=== PATIENT | female | born 1945 | race Caucasian/White ===

== ENCOUNTER → 2018-04-27 12:53 | Outpatient (CLI) | payer MEDICARE, SELFPAY | PROVIDERS: Visit Provider Family Medicine | DX: M85.852 Other specified disorders of bone density and structure, left thigh (principal) | CPT/HCPCS: 77080 ==

== ENCOUNTER → 2018-05-05 18:20 | Outpatient (REF) | payer MEDICARE, SELFPAY | LOC: LAB 18:20 | PROVIDERS: Visit Provider Family Medicine | DX: L08.9 Local infection of the skin and subcutaneous tissue, unspecified (principal) | CPT/HCPCS: 87070; 87075; 87205 ==

== ENCOUNTER → 2018-09-22 08:14 | Outpatient (CLI) | payer MEDICARE, SELFPAY ==
--- NOTE | 2018-09-22 09:54 | DI.MG.S_ITS ---
Patient Name: GEOFF FUNG date: 1945 Sex: F Attending Physician: Alejandro Indications: Date: 09/22/2018 08:37 At the request of: TERRIE NUNEZ Procedure: MM screening mammo BI BILATERAL DIGITAL SCREENING MAMMOGRAM 3D/2D WITH CAD: 09/22/2018 CLINICAL: Routine screening. Comparison is made to exams dated: 08/23/2017 mammogram, 09/09/2015 mammogram, and 08/21/2014 mammogram - [facility]. There are scattered fibroglandular elements in both breasts. Current study was also evaluated with a Computer Aided Detection (CAD) system. There are benign calcifications and lymph nodes in both breasts. No significant masses, calcifications, or other findings are seen in either breast. There has been no significant interval change. IMPRESSION: There is no mammographic evidence of malignancy. A 1 year screening mammogram is recommended. This exam was interpreted at Station ID: [id number]. NOTE: For mammograms, a report in lay terms will be sent to the patient. Approximately 15% of breast malignancies will not be visualized mammographically. In the management of a palpable breast mass, a negative mammogram must not discourage biopsy of a clinically suspicious lesion. Electronically Signed By: Alfredo jimneez/ruby:09/22/2018 09:54:04 letter sent: Normal Exam ACR BI-RADS Category 2: Benign Finding(s) 3342F
== END ==
PROVIDERS: PCP Family Medicine; Visit Provider Family Medicine
DX: Z12.31 Encounter for screening mammogram for malignant neoplasm of breast (principal)
CPT/HCPCS: 77063; 77067

== ENCOUNTER → 2019-01-31 07:20 | Outpatient (CLI) | payer MEDICARE, SELFPAY ==
[2019-01-31 09:13] LABS: Alanine Aminotransferase 16 IU/L (9-52); Albumin 4.3 g/dL (3.5-5.0); Albumin Globulin Ratio 1.4 (1.0-2.8); Alkaline Phosphatase 87 U/L (38-126); Aspartate Aminotransferase 25 IU/L (14-36); BUN Creatinine Ratio 22.5 (6-22); Bilirubin Total 0.5 mg/dL (0.2-1.3); Blood Urea Nitrogen 18 mg/dL (7-17); Calcium 9.3 mg/dL (8.4-10.2); Carbon Dioxide 33 mmol/L (22-32); Chloride 99 mmol/L (98-107); Cholesterol 220 mg/dL (140-199); Estimated Glomerular Filt Rate > 60.0 mL/min (>60); Globulin 3.1 g/dL (1.7-4.1); Glucose 109 mg/dL (80-110); HDL Cholesterol 77 mg/dL (40-60); HEMOLYSIS < 15 (0-50); LDL Cholesterol Calculated 119 mg/dL (<100); Potassium 3.9 mmol/L (3.4-5.1); Sodium 139 mmol/L (137-145); Total Protein 7.4 g/dL (6.3-8.2); Triglycerides 122 mg/dL (35-150)
[2019-01-31 09:20] LABS: Vitamin D 25 Hydroxy (D3) 68.9 ng/mL (30.0-100.0)
[2019-01-31 10:54] LABS: Creatinine Urine Random 106.4 mg/dL
[2019-01-31 10:58] LABS: Microalbumi Creatinin Ratio Ur 15.9 ug/mg CR (<30); Microalbumin Urine Random 1.7 mg/dL (0-1.6)
== END ==
PROVIDERS: PCP Family Medicine; Visit Provider Family Medicine
DX: I10 Essential (primary) hypertension (principal); E55.9 Vitamin D deficiency, unspecified
CPT/HCPCS: 36415; 80053; 80061; 82043; 82306; 82570

== ENCOUNTER → 2019-05-03 12:55 | Outpatient (CLI) | payer MEDICARE, SELFPAY ==
[2019-05-03 13:47] LABS: BUN Creatinine Ratio 28.6 (6-22); Blood Urea Nitrogen 20 mg/dL (7-17); Calcium 10.2 mg/dL (8.4-10.2); Carbon Dioxide 31 mmol/L (22-32); Chloride 98 mmol/L (98-107); Estimated Glomerular Filt Rate > 60.0 mL/min (>60); Glucose 95 mg/dL (80-110); HEMOLYSIS < 15 (0-50); Potassium 4.1 mmol/L (3.4-5.1); Sodium 138 mmol/L (137-145)
[2019-05-03 13:49] LABS: Hemoglobin A1C% w Est Avg Glu 5.3 % (4.0-6.0)
== END ==
PROVIDERS: PCP Family Medicine; Visit Provider Family Medicine
DX: I10 Essential (primary) hypertension (principal); Z13.1 Encounter for screening for diabetes mellitus
CPT/HCPCS: 36415; 80048; 83036

== ENCOUNTER → 2019-10-21 12:31 | Outpatient (CLI) | payer MEDICARE, SELFPAY ==
--- NOTE | 2019-10-21 | DI.MG.S_ITS ---
BILATERAL DIGITAL SCREENING MAMMOGRAM 3D/2D WITH CAD: 10/21/2019 CLINICAL: Routine screening. Comparison is made to exams dated: 09/22/2018 mammogram, 08/23/2017 mammogram, and 09/09/2015 mammogram - [facility]. There are scattered fibroglandular elements in both breasts. Current study was also evaluated with a Computer Aided Detection (CAD) system. There are benign lymph nodes in both breasts. There also are benign calcifications in both breasts. No significant masses, calcifications, or other findings are seen in either breast. There has been no significant interval change. IMPRESSION: There is no mammographic evidence of malignancy. A 1 year screening mammogram is recommended. This exam was interpreted at Station ID: [id number]. NOTE: For mammograms, a report in lay terms will be sent to the patient. Approximately 15% of breast malignancies will not be visualized mammographically. In the management of a palpable breast mass, a negative mammogram must not discourage biopsy of a clinically suspicious lesion. Electronically Signed By: Alfredo jimenez/ruby:10/23/2019 08:32:10 letter sent: Normal Exam ACR BI-RADS Category 2: Benign Finding(s) 3342F
== END ==
PROVIDERS: PCP Family Medicine; Referring Provider Family Medicine; Visit Provider Family Medicine
DX: Z12.31 Encounter for screening mammogram for malignant neoplasm of breast (principal)
CPT/HCPCS: 77063; 77067

== ENCOUNTER → 2020-05-03 07:37 | Outpatient (CLI) | payer MEDICARE, SELFPAY ==
[2020-05-03 09:09] LABS: Add Manual Diff / Slide Review NO; Basophils Absolute Auto 100 /uL (0-100); Eosinophils Absolute Auto 300 /uL (0-450); Eosinophils Percent Auto 5.6 % (2-4); Hematocrit 38.2 % (36-46); Hemoglobin 12.7 g/dL (12.0-16.0); Lymphocytes Absolute Auto 1400 /uL (1100-4500); Lymphocytes Percent Auto 21.9 % (25-40); Mean Corpuscular HGB Conc 33.3 % (30-36); Mean Corpuscular Hemoglobin 29.2 PG (26-34); Mean Corpuscular Volume 87.8 fL (80-100); Monocytes Absolute Auto 500 /uL (0-900); Monocytes Percent Auto 7.7 % (3-14); Neutrophils Absolute Auto 3900 /uL (1500-7000); Neutrophils Percent Auto 63.8 % (50-75); Platelet Count 251 X10^3/uL (150-400); Red Blood Cell Count 4.35 X10^6/uL (4.0-5.2); Red Cell Distribution Width 13.1 % (11.6-14.8); White Blood Cell Count 6.2 X10^3/uL (4.5-11.0)
[2020-05-03 09:12] LABS: Alanine Aminotransferase 15 IU/L (<35); Albumin 3.9 g/dL (3.5-5.0); Albumin Globulin Ratio 1.4 (1.0-2.8); Alkaline Phosphatase 65 U/L (38-126); Aspartate Aminotransferase 24 IU/L (14-36); BUN Creatinine Ratio 23.6 (6-22); Bilirubin Total 0.5 mg/dL (0.2-1.3); Blood Urea Nitrogen 21 mg/dL (7-17); Calcium 9.4 mg/dL (8.4-10.2); Carbon Dioxide 29 mmol/L (22-32); Chloride 103 mmol/L (98-107); Cholesterol 210 mg/dL (140-199); Estimated Glomerular Filt Rate > 60.0 mL/min (>60); Globulin 2.8 g/dL (1.7-4.1); Glucose 107 mg/dL (80-110); HDL Cholesterol 83 mg/dL (40-60); HEMOLYSIS < 15 (0-50); LDL Cholesterol Calculated 114 mg/dL (<100); Potassium 4.4 mmol/L (3.4-5.1); Sodium 138 mmol/L (137-145); Total Protein 6.7 g/dL (6.3-8.2); Triglycerides 66 mg/dL (35-150)
[2020-05-07 12:36] LABS: Vitamin D 25 Hydroxy (D3) 61.4 ng/mL (30.0-100.0)
== END ==
PROVIDERS: PCP Family Medicine; Referring Provider Family Medicine; Visit Provider Family Medicine
DX: E78.5 Hyperlipidemia, unspecified (principal); I10 Essential (primary) hypertension; Z79.899 Other long term (current) drug therapy; E55.9 Vitamin D deficiency, unspecified
CPT/HCPCS: 36415; 80053; 80061; 82306; 85025

== ENCOUNTER → 2020-06-23 08:19 | Outpatient (CLI) | payer MEDICARE, SELFPAY ==
[2020-06-24 16:59] LABS: COVID19 Sendout Not Detected (Not Detect)
== END ==
PROVIDERS: PCP Family Medicine; Visit Provider Physician Assistant
DX: Z11.59 Encounter for screening for other viral diseases (principal)
CPT/HCPCS: 87635

== ENCOUNTER → 2020-07-10 10:42 | Outpatient (CLI) | payer MEDICARE, SELFPAY ==
[2020-07-10 12:38] LABS: COVID19 -Nasal RAPID Negative (Negative)
== END ==
PROVIDERS: PCP Family Medicine; Visit Provider Nurse Practitioner Family
DX: G47.33 Obstructive sleep apnea (adult) (pediatric) (principal)
CPT/HCPCS: 87635

== ENCOUNTER → 2020-07-29 09:25 | Outpatient (CLI) | payer MEDICARE, SELFPAY ==
[2020-07-29 11:42] LABS: COVID19 -Nasal RAPID Negative (Negative)
== END ==
PROVIDERS: PCP Family Medicine; Visit Provider Physician Assistant
DX: Z11.59 Encounter for screening for other viral diseases (principal)
CPT/HCPCS: 87635

== ENCOUNTER 2020-07-31 07:27 | Day surgery (SDC) | payer MEDICARE, SELFPAY ==
[2020-07-31 08:01] VITALS: BP 125/79; PULSE 96; RESP 16; TEMP 36.9; O2SAT 98; BMI 28.3
[2020-07-31] MEDS: SODIUM CHLORIDE 0.9% 1,000 ML 21 ML IV (08:11)
--- NOTE | 2020-07-31 08:26 | PM.HP.1 ---
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 Grandfather No problems noted. Grandmother No problems noted. Social History: household members spouse lives independently Yes caregiver/support person No Tobacco & Substance use: Smoking Status Never smoker alcohol intake current alcohol intake frequency a few times a week Substance Use Type does not use Meds Home Medications and Allergies Home Medications Medication Instructions Recorded Confirmed Type FEXOFENADINE HCL/PSE HCL 1 tab PO PRN PRN #0 07/10/11 07/31/20 History (ALAN-D) cyanocobalamin (vitamin B-12) 1,000 mcg PO DAILY #0 12/08/17 07/31/20 History cholecalciferol (vitamin D3) 1,250 50,000 unit PO .COMPLEX 03/22/18 07/31/20 History mcg (50,000 unit) capsule hydrochlorothiazide 25 mg tablet See Rx Instructions .ROUTE 05/13/20 07/31/20 Rx .COMPLEX #90 tab paroxetine HCl 20 mg tablet 20 mg PO QDAY #90 tab 05/13/20 07/31/20 Rx pravastatin 20 mg tablet See Rx Instructions .ROUTE 05/13/20 07/31/20 Rx .COMPLEX #90 tablet Allergies Allergy/AdvReac Type Severity Reaction Status Date / Time No Known Drug Allergies Allergy Verified 07/31/20 07:55 Exam Vital Signs (past 8 hours): - 07/31/20 08:01 Temperature 98.4 F Pulse Rate 96 H Respiratory Rate 16 Blood Pressure 125/79 Pulse Oximetry 98 Oxygen Delivery Method Room Air Narrative Exam Narrative: Oropharynx free of lesions Chest clear to auscultation percussion Cardiac exam reveals no S3 or murmur Assessment & Plan Assessment & Plan narrative: History of large flat polyp in the right colon that could not be removed endoscopically status post right hemicolectomy and a brother of colon cancer at age 57. Need for follow-up colonoscopy. Risks, benefits, alternatives have been explained.
--- NOTE | 2020-07-31 08:27 | PM.OP.ENDO ---
Operative Date/Time/Diagnoses Date of procedure: 07/31/20 Pre-op diagnosis: See indication and findings Procedure & Clinicians Study performed: Colonoscopy Indications: Family history of colon cancer in a brother at age 57 and status post right hemicolectomy for large flat polyp. Need for follow-up colonoscopy. Surgeon: Sara Boyce Procedure Notes Procedure in detail: After informed consent was obtained the patient was placed in left lateral decubitus position. The video colonoscope was introduced the rectum slowly advanced anastomosis. Preparation was good. On slow withdrawal mucosa was carefully examined. The scope was removed. The patient tolerated procedure well. Blood loss none Complications none Sedation Total sedation time 15 minutes Versed 6 mg fentanyl 150 mg IV titration Findings 1. Normal anastomosis near the hepatic flexure 2. Extensive sigmoid diverticulosis 3. Otherwise negative colonoscopy to cecum with no polyps seen. Due to her family history of colon cancer she should have follow-up colonoscopy again in 5 years.
[2020-07-31] MEDS: MIDAZOLAM 5 MG/5 ML VIAL IV (08:45)
[2020-07-31] MEDS: fentaNYL 250 MCG/5 ML INJ IV (08:45)
[2020-07-31 08:58] VITALS: BP 97/64; PULSE 89; RESP 8; TEMP 37.6; O2SAT 90
--- NOTE | 2020-07-31 09:00 | SUR.PHASEI ---
report rcvd from YULIANA Damon after pt in pacu for couple minutes. Report now given to Yuliana Oleary
[2020-07-31 09:02] VITALS: BP 105/60; PULSE 87; RESP 11; O2SAT 99
[2020-07-31 09:07] VITALS: BP 128/68; PULSE 87; RESP 12; O2SAT 100
[2020-07-31 09:12] VITALS: BP 132/64; PULSE 87; RESP 12; TEMP 36.9; O2SAT 99
[2020-07-31 09:18] VITALS: BP 126/72; PULSE 86; RESP 14; O2SAT 94
== END 2020-07-31 09:36 | disposition home or self-care (01) ==
PROVIDERS: PCP Family Medicine; Referring Provider Family Medicine; Visit Provider Internal Medicine Gastroenterology
PROC: 0DJD8ZZ Inspection of Lower Intestinal Tract, Via Natural or Artificial Opening Endoscopic (ICD-10-PCS; CPT 45378; principal; 2020-07-31 08:30)
DX: Z12.11 Encounter for screening for malignant neoplasm of colon (principal); Z80.0 Family history of malignant neoplasm of digestive organs; Z86.010 Personal history of colon polyps; K57.30 Diverticulosis of large intestine without perforation or abscess without bleeding; Z90.49 Acquired absence of other specified parts of digestive tract
CPT/HCPCS: G0105; J2250; J3010

== ENCOUNTER → 2021-03-12 11:03 | Outpatient (CLI) | payer MEDICARE, SELFPAY ==
--- NOTE | 2021-03-12 11:05 | DI.MG.S_ITS ---
BILATERAL DIGITAL SCREENING MAMMOGRAM 3D/2D WITH CAD: 03/12/2021 Comparison is made to exams dated: 10/21/2019 mammogram, 09/22/2018 mammogram, 08/23/2017 mammogram, and 09/09/2015 mammogram - [facility]. There are scattered fibroglandular elements in both breasts. Current study was also evaluated with a Computer Aided Detection (CAD) system. There are benign lymph nodes in both breasts. There also are benign calcifications in both breasts. No significant masses, calcifications, or other findings are seen in either breast. There has been no significant interval change. IMPRESSION: BENIGN There is no mammographic evidence of malignancy. A 1 year screening mammogram is recommended. This exam was interpreted at Station ID: [id number]. NOTE: For mammograms, a report in lay terms will be sent to the patient. Approximately 15% of breast malignancies will not be visualized mammographically. In the management of a palpable breast mass, a negative mammogram must not discourage biopsy of a clinically suspicious lesion. Electronically Signed By: Moncho parra/ruby:03/12/2021 11:46:31 letter sent: Normal Exam ACR BI-RADS Category 2: Benign Finding(s) 3342F
== END ==
PROVIDERS: PCP Family Medicine; Referring Provider Family Medicine; Visit Provider Family Medicine
DX: Z12.31 Encounter for screening mammogram for malignant neoplasm of breast (principal)
CPT/HCPCS: 77063; 77067

== ENCOUNTER → 2021-05-29 07:44 | Outpatient (CLI) | payer MEDICARE, SELFPAY ==
[2021-05-29 08:10] LABS: Add Manual Diff / Slide Review NO; Basophils Absolute Auto 100 /uL (0-100); Basophils Percent Auto 1.2 % (0-2); Eosinophils Absolute Auto 300 /uL (0-450); Hematocrit 39.8 % (36-46); Hemoglobin 13.1 g/dL (12.0-16.0); Lymphocytes Absolute Auto 1600 /uL (1100-4500); Lymphocytes Percent Auto 22.2 % (25-40); Mean Corpuscular HGB Conc 32.9 % (30-36); Mean Corpuscular Hemoglobin 29.2 PG (26-34); Mean Corpuscular Volume 88.7 fL (80-100); Monocytes Absolute Auto 500 /uL (0-900); Monocytes Percent Auto 7.7 % (3-14); Neutrophils Absolute Auto 4600 /uL (1500-7000); Neutrophils Percent Auto 64.9 % (50-75); Platelet Count 269 X10^3/uL (150-400); Red Blood Cell Count 4.49 X10^6/uL (4.0-5.2); Red Cell Distribution Width 13.4 % (11.6-14.8); White Blood Cell Count 7.1 X10^3/uL (4.5-11.0)
[2021-05-29 09:26] LABS: Alanine Aminotransferase 20 IU/L (<35); Albumin 4.2 g/dL (3.5-5.0); Albumin Globulin Ratio 1.4 (1.0-2.8); Alkaline Phosphatase 68 U/L (38-126); Aspartate Aminotransferase 30 IU/L (14-36); BUN Creatinine Ratio 24.3 (6-22); Bilirubin Total 0.4 mg/dL (0.2-1.3); Blood Urea Nitrogen 18 mg/dL (7-17); Calcium 9.7 mg/dL (8.4-10.2); Carbon Dioxide 33 mmol/L (22-32); Chloride 102 mmol/L (98-107); Cholesterol 235 mg/dL (140-199); Estimated Glomerular Filt Rate > 60.0 mL/min (>60); Globulin 2.9 g/dL (1.7-4.1); Glucose 101 mg/dL (80-110); HDL Cholesterol 92 mg/dL (40-60); HEMOLYSIS < 15 (0-50); LDL Cholesterol Calculated 126 mg/dL (<100); Potassium 4.3 mmol/L (3.4-5.1); Sodium 140 mmol/L (137-145); Total Protein 7.1 g/dL (6.3-8.2); Triglycerides 87 mg/dL (35-150)
[2021-05-29 10:13] LABS: Vitamin B12 > 1000 pg/mL (239-931)
[2021-05-29 10:19] LABS: Creatinine Urine Random 99.3 mg/dL
[2021-05-29 10:25] LABS: Microalbumin Urine Random < 0.6 mg/dL (0-1.6)
== END ==
PROVIDERS: PCP Family Medicine; Referring Provider Family Medicine; Visit Provider Family Medicine
DX: E53.8 Deficiency of other specified B group vitamins (principal); E78.5 Hyperlipidemia, unspecified; I10 Essential (primary) hypertension
CPT/HCPCS: 36415; 80053; 80061; 82043; 82570; 82607; 85025

== ENCOUNTER → 2021-06-13 10:33 | Outpatient (CLI) | payer MEDICARE, SELFPAY ==
--- NOTE | 2021-06-13 10:35 | DI.RAD.S_ITS ---
PROCEDURE: XR FINGER LT MIN 2V INDICATIONS: left 3rd finger pain TECHNIQUE: AP hand, 2 views of the left 3rd finger(s) acquired. COMPARISON: None. FINDINGS: Bones: No fractures or dislocations. No suspicious bony lesions. Moderate 3rd DIP joint osteoarthritis. Soft tissues: No suspicious soft tissue calcifications. IMPRESSION: 1. No fracture. No acute osseous lesion. If symptoms and/or clinical suspicion for pathology persists, further assessment with repeat radiographs (7-10 days) or advanced imaging (e.g. CT, MRI or bone scan) should be considered. 2. Third DIP joint osteoarthritis. Dictated by: Lizbet Peña MD, PhD on 06/13/2021 at 11:55 Approved by: Lizbet Peña MD, PhD on 06/13/2021 at 12:06
== END ==
PROVIDERS: PCP Family Medicine; Referring Provider Family Medicine; Visit Provider Family Medicine
DX: M79.646 Pain in unspecified finger(s) (principal); M19.042 Primary osteoarthritis, left hand
CPT/HCPCS: 73140

== ENCOUNTER → 2022-03-25 09:09 | Outpatient (CLI) | payer MEDICARE, SELFPAY ==
--- NOTE | 2022-03-25 | DI.MG.S_ITS ---
BILATERAL DIGITAL SCREENING MAMMOGRAM 3D/2D WITH CAD: 03/25/2022 CLINICAL: Routine screening. Comparison is made to exams dated: 03/12/2021 mammogram, 10/21/2019 mammogram, and 09/22/2018 mammogram - [facility]. There are scattered fibroglandular elements in both breasts. Current study was also evaluated with a Computer Aided Detection (CAD) system. There is a benign focal asymmetry in both breasts. There also are benign lymph nodes in both breasts. Additionally, there are benign calcifications in both breasts. No significant masses, calcifications, or other findings are seen in either breast. There has been no significant interval change. IMPRESSION: BENIGN There is no mammographic evidence of malignancy. A 1 year screening mammogram is recommended. Based on the Tyrer Cuzick model (a risk assessment model) the patient's lifetime risk is 2.8% and her 10 year risk is 0.0%. According to the ACR, ACS, and NCCN guidelines, an annual breast MRI exam along with mammogram is recommended if the patient's lifetime risk is 20% or greater. This exam was interpreted at Station ID: [id number]. NOTE: For mammograms, a report in lay terms will be sent to the patient. Approximately 15% of breast malignancies will not be visualized mammographically. In the management of a palpable breast mass, a negative mammogram must not discourage biopsy of a clinically suspicious lesion. Electronically Signed By: Antonio Reed acr/ruby:03/25/2022 09:46:32 letter sent: Normal Exam ACR BI-RADS Category 2: Benign Finding(s) 3342F
== END ==
PROVIDERS: PCP Family Medicine; Referring Provider Family Medicine; Visit Provider Family Medicine
DX: Z12.31 Encounter for screening mammogram for malignant neoplasm of breast (principal)
CPT/HCPCS: 77063; 77067

== ENCOUNTER → 2022-03-26 07:00 | Outpatient (CLI) | payer MEDICARE, SELFPAY ==
[2022-03-26 09:31] LABS: Alanine Aminotransferase 20 IU/L (<35); Albumin 4.1 g/dL (3.5-5.0); Albumin Globulin Ratio 1.5 (1.0-2.8); Alkaline Phosphatase 62 U/L (38-126); Aspartate Aminotransferase 31 IU/L (14-36); BUN Creatinine Ratio 22.4 (6-22); Bilirubin Total 0.5 mg/dL (0.2-1.3); Blood Urea Nitrogen 19 mg/dL (7-17); Calcium 9.3 mg/dL (8.4-10.2); Carbon Dioxide 30 mmol/L (22-32); Chloride 102 mmol/L (98-107); Cholesterol 265 mg/dL (140-199); Estimated Glomerular Filt Rate > 60 mL/min (>60); Globulin 2.7 g/dL (1.7-4.1); Glucose 106 mg/dL (80-110); HDL Cholesterol 89 mg/dL (40-60); HEMOLYSIS < 15 (0-50); LDL Cholesterol Calculated 158 mg/dL (<100); Potassium 4.2 mmol/L (3.4-5.1); Sodium 139 mmol/L (137-145); Total Protein 6.8 g/dL (6.3-8.2); Triglycerides 90 mg/dL (35-150)
[2022-03-26 09:46] LABS: Vitamin D 25 Hydroxy (D3) 68.3 ng/mL (30.0-100.0)
[2022-03-26 10:15] LABS: Creatinine Urine Random 120.6 mg/dL
[2022-03-26 10:18] LABS: Microalbumi Creatinin Ratio Ur 4.9 ug/mg CR (<30); Microalbumin Urine Random 0.6 mg/dL (0-1.6)
[2022-03-26 10:19] LABS: Vitamin B12 505 pg/mL (239-931)
== END ==
PROVIDERS: PCP Family Medicine; Referring Provider Family Medicine; Visit Provider Family Medicine
DX: E78.5 Hyperlipidemia, unspecified (principal); K21.9 Gastro-esophageal reflux disease without esophagitis; E53.8 Deficiency of other specified B group vitamins; I10 Essential (primary) hypertension
CPT/HCPCS: 36415; 80053; 80061; 82043; 82306; 82570; 82607

== ENCOUNTER → 2022-06-05 07:47 | Outpatient (CLI) | payer MEDICARE, SELFPAY ==
[2022-06-05 09:08] LABS: Cholesterol 228 mg/dL (140-199); HDL Cholesterol 87 mg/dL (40-60); LDL Cholesterol Calculated 126 mg/dL (<100); Triglycerides 74 mg/dL (35-150)
== END ==
PROVIDERS: PCP Family Medicine; Referring Provider Family Medicine; Visit Provider Family Medicine
DX: E78.5 Hyperlipidemia, unspecified (principal)
CPT/HCPCS: 36415; 80061

== ENCOUNTER → 2023-01-07 07:26 | Outpatient (CLI) | payer MEDICARE, SELFPAY ==
[2023-01-07 09:09] LABS: Cholesterol 234 mg/dL (140-199); HDL Cholesterol 90 mg/dL (40-60); LDL Cholesterol Calculated 126 mg/dL (<100); Triglycerides 91 mg/dL (35-150)
== END ==
PROVIDERS: PCP Family Medicine; Referring Provider Physician Assistant; Visit Provider Physician Assistant
DX: E78.5 Hyperlipidemia, unspecified (principal)
CPT/HCPCS: 36415; 80061

== ENCOUNTER → 2023-06-14 12:34 | Outpatient (CLI) | payer MEDICARE, SELFPAY ==
--- NOTE | 2023-06-14 | DI.MG.S_ITS ---
BILATERAL DIGITAL SCREENING MAMMOGRAM 3D/2D WITH CAD: 06/14/2023 CLINICAL: Routine screening. Comparison is made to exams dated: 03/25/2022 mammogram, 03/12/2021 mammogram, and 10/21/2019 mammogram - [facility]. There are scattered areas of fibroglandular density in both breasts (category b / 25%-50% glandular tissue). Current study was also evaluated with a Computer Aided Detection (CAD) system. No significant masses, calcifications, or other findings are seen in either breast. IMPRESSION: NEGATIVE There is no mammographic evidence of malignancy. A 1 year screening mammogram is recommended. Based on the Tyrer Cuzick model (a risk assessment model) the patient's lifetime risk is 2.2% and her 10 year risk is 0.0%. According to the ACR, ACS, and NCCN guidelines, an annual breast MRI exam along with mammogram is recommended if the patient's lifetime risk is 20% or greater. This exam was interpreted at Station ID: [id number]. NOTE: For mammograms, a report in lay terms will be sent to the patient. Approximately 15% of breast malignancies will not be visualized mammographically. In the management of a palpable breast mass, a negative mammogram must not discourage biopsy of a clinically suspicious lesion. Electronically Signed By: Kelle blackburn/ruby:06/15/2023 08:24:43 letter sent: Normal Exam ACR BI-RADS Category 1: Negative 3341F
== END ==
PROVIDERS: PCP Family Medicine; Referring Provider Family Medicine; Visit Provider Family Medicine
DX: Z12.31 Encounter for screening mammogram for malignant neoplasm of breast (principal)
CPT/HCPCS: 77063; 77067

== ENCOUNTER → 2023-06-28 12:43 | Outpatient (CLI) | payer MEDICARE, SELFPAY ==
--- NOTE | 2023-06-28 12:44 | DI.RAD.S_ITS ---
PROCEDURE: XR HIP W PEL IF DONE LT 2V INDICATIONS: Pain TECHNIQUE: AP pelvis with lateral view(s) of the left hip(s). COMPARISON: None. FINDINGS: Bones: No fractures or dislocations. Pelvic ring appears intact. No suspicious bony lesions. Mild symmetric axial hip joint space narrowing with minimal periarticular osteophyte formation. Degenerative disc and facet disease involves the inferior lumbar spine. Soft tissues: The visualized bowel gas pattern is normal. No suspicious soft tissue calcifications. IMPRESSION: Mild symmetric hip joint degeneration. If pain persist with conservative management, consider cross-sectional imaging such as CT or MRI. Dictated by: Brayan WATTS Interpreted: Moncho Hess MD on 06/28/2023 at 13:34 Transcribed by: PRADIP on 06/28/2023 at 13:34 Approved by: Moncho Hess M.D. on 06/28/2023 at 21:09
--- NOTE | 2023-06-28 12:44 | DI.RAD.S_ITS ---
PROCEDURE: XR LUMBAR SPINE 2-3V INDICATIONS: Pain TECHNIQUE: 3 views of the lumbar spine were acquired. COMPARISON: None. FINDINGS: Bones: 5 baf-vsg-mizcgus vertebrae are present. Minimal levocurvature of the lumbar spine. There is multilevel facet arthropathy, worse at L4-5 and L5-S1. Mild multilevel disc height loss with degenerative endplate changes and spurring is present. No vertebral body compression fractures. No suspicious bony lesions. Decreased osseous mineralization. Soft tissues: Overlying bowel gas pattern is normal. No suspicious soft tissue calcifications. Atherosclerotic vascular calcifications. IMPRESSION: Mild degenerative changes of the lumbar spine. Dictated by: Javed De La Paz M.D. on 06/28/2023 at 14:15 Approved by: Javed De La Paz M.D. on 06/28/2023 at 14:16
== END ==
PROVIDERS: PCP Family Medicine; Referring Provider Family Medicine; Visit Provider Family Medicine
DX: R52 Pain, unspecified (principal); M16.0 Bilateral primary osteoarthritis of hip
CPT/HCPCS: 72100; 73502

== ENCOUNTER → 2023-08-18 06:54 | Outpatient (CLI) | payer MEDICARE, SELFPAY ==
[2023-08-18 08:08] LABS: Alanine Aminotransferase 20 IU/L (<35); Albumin 3.9 g/dL (3.5-5.0); Albumin Globulin Ratio 1.3 (1.0-2.8); Alkaline Phosphatase 69 U/L (38-126); Aspartate Aminotransferase 27 IU/L (14-36); BUN Creatinine Ratio 19.5 (6-22); Bilirubin Total 0.7 mg/dL (0.2-1.3); Blood Urea Nitrogen 16 mg/dL (7-17); Calcium 9.6 mg/dL (8.4-10.2); Carbon Dioxide 32 mmol/L (22-32); Chloride 102 mmol/L (98-107); Cholesterol 227 mg/dL (140-199); Estimated Glomerular Filt Rate > 60 mL/min (>60); Globulin 2.9 g/dL (1.7-4.1); Glucose 104 mg/dL (80-110); HDL Cholesterol 91 mg/dL (40-60); HEMOLYSIS < 15 (0-50); LDL Cholesterol Calculated 117 mg/dL (<100); Potassium 4.4 mmol/L (3.4-5.1); Sodium 139 mmol/L (137-145); Total Protein 6.8 g/dL (6.3-8.2); Triglycerides 95 mg/dL (35-150)
== END ==
PROVIDERS: PCP Family Medicine; Referring Provider Family Medicine; Visit Provider Family Medicine
DX: I10 Essential (primary) hypertension (principal)
CPT/HCPCS: 36415; 80053; 80061

== ENCOUNTER 2023-09-15 13:58 | Outpatient (CLI) | payer MEDICARE, SELFPAY ==
[2023-09-15 14:05] VITALS: BP 145/65; PULSE 78; RESP 20; TEMP 36.4; O2SAT 99
[2023-09-15 14:23] VITALS: BP 162/77; PULSE 74; RESP 16; O2SAT 97
[2023-09-15] MEDS: DEXAMETHASONE 10 MG/ML VIAL INJ (14:27)
[2023-09-15] MEDS: iopamidoL 15 ML VIAL 3 ML INJ (14:27)
[2023-09-15] MEDS: BUPIVACAINE 0.5% (PF) 10 ML VIAL 2 ML INJ (14:27)
[2023-09-15 14:28] VITALS: BP 144/77; PULSE 73; RESP 19; O2SAT 97
--- NOTE | 2023-09-15 14:30 | DI.RAD.S_ITS ---
PROCEDURE: PAIN BURSA/JOINT INJECT WO US INDICATIONS: ISCHIAL BURSITIS COMPARISON: None. FINDINGS: Fluoroscopic spot filming was performed to verify placement of spinal needles at the ischial bursa, as labeled on the films. Appropriate location(s) of the needle tip(s) was confirmed by injection of iodinated contrast. IMPRESSION: Intraoperative images, please see operative note for full details. Dictated by: Ayaan Kelly M.D. on 09/15/2023 at 17:31 Approved by: Ayaan Kelly M.D. on 09/15/2023 at 17:31
[2023-09-15 14:31] VITALS: BP 168/87; PULSE 71; RESP 18; O2SAT 99
[2023-09-15 14:35] VITALS: BP 156/69; PULSE 75; RESP 18; O2SAT 99
--- NOTE | 2023-09-15 15:15 | P.PCN_ITS ---
Date/Time/Diagnoses Date of procedure: 09/15/23 Time of procedure: 14:30 Procedure Notes Physician: Andrew Lees Total Fluoroscopy time (seconds): 9 Total sedation minutes: 0 Procedure in detail & Post-procedure care: Left Ischial Bursa Injection Indications: Susanna is presenting for treatment of ischial bursitis with buttock pain. Preoperative diagnosis: Left ischial bursitis Postoperative diagnosis: Same Focused Examination: Ax3 Mood and affect are normal Vital Signs: VSS Consent: Following review of allergies and potential side effects/complications, including, but not necessarily limited to, infection, allergic reaction, local tissue breakdown, stroke, temporary or permanent nerve injury, paralysis, and possible , the patient indicated that they understood and agreed to proceed.? An informed consent document was signed by the patient, witnessed by a nurse and placed in the patient's chart.? Additionally, other treatment options including medications and physical therapy were reviewed with the patient. All questions were answered. Site was then marked. Anesthesia: Local Position: Prone Monitoring: NIBP, Pulse oximetry, 3 lead EKG Needle used: 22 gauge, 5 inch spinal needle Contrast: Isovue 300-M 3mL Injectate: Dexamethasone 7.5 mg with 1% lidocaine 2 mL Technique: The skin was prepped with chloraprep and then draped in a sterile fashion. Time out was performed as per protocol. Oxygen applied via NC. The expected location of the left ischial bursa was identified at the inferior aspect of the ischium using fluoroscopy. Skin and subcutaneous structures of the needle entry sites were then infiltrated with 5 mL of lidocaine 1% using a 25 gauge, 1.5 in needle. Under AP and lateral control, the needle was guided to the inferolateral aspect of the ischium. Contrast was injected and the spread was consistent with appropriate needle location. There was no evidence for intravascular uptake. After negative aspiration, the above-mentioned injectate was slowly administered and the needle withdrawn. The patient expressed no unu sual discomfort or paresthesias during needle positioning or injection. Band- Aids applied to injection sites. EBL: less than 1 ml Complications: None Post Procedure: Patient was taken to the recovery and monitored. The patient was provided a Pain Log to continue to record the patient's response to the target- specific procedure prior to the patient's follow-up visit with the referring physician. Patient was stable upon discharge. Detailed post procedure instructions were provided. Patient was asked to call in the event of worsening pain, fever, weakness, numbness or bladder/bowel incontinence.
--- NOTE | 2023-09-16 13:29 | PC.NURSE ---
post injection call- reports that her hip is tender at times but rates it 1-10/23. Has no questions or concerns at this time and has f/u apt on 10/12/23.
== END 2023-09-15 14:49 | disposition home or self-care (01) ==
PROVIDERS: PCP Family Medicine; Referring Provider Anesthesiology; Visit Provider Anesthesiology
DX: M70.72 Other bursitis of hip, left hip (principal)
CPT/HCPCS: 20610; 77002; J1100

== ENCOUNTER 2023-10-20 07:39 | Outpatient (CLI) | payer MEDICARE, SELFPAY ==
--- NOTE | 2023-10-20 08:00 | DI.RAD.S_ITS ---
PROCEDURE: PAIN BURSA/JOINT INJECT WO US INDICATIONS: Lt Ischial Bursitis COMPARISON: [facility], XA, PAIN BURSA/JOINT INJECT WO US, 09/15/2023, 15:22. FINDINGS: Fluoroscopic spot filming was performed to verify placement of spinal needles at the the left ischial level(s), as labeled on the films. Appropriate location(s) of the needle tip(s) was confirmed by injection of iodinated contrast. IMPRESSION: Fluoroscopic guidance utilized for left ischial injection. Dictated by: Harley Dey M.D. on 10/20/2023 at 14:27 Approved by: Harley Dey M.D. on 10/20/2023 at 14:37
[2023-10-20 08:10] VITALS: BP 128/74; PULSE 76; RESP 13; O2SAT 97
[2023-10-20] MEDS: BUPIVACAINE 0.5% (PF) 10 ML VIAL 2 ML INJ (08:11)
[2023-10-20] MEDS: iopamidoL 15 ML VIAL 3 ML INJ (08:12)
[2023-10-20 08:15] VITALS: BP 140/75; PULSE 75; RESP 17; O2SAT 96
[2023-10-20 08:20] VITALS: BP 149/66; PULSE 75; RESP 18; O2SAT 97
--- NOTE | 2023-10-20 12:19 | P.PCN_ITS ---
Date/Time/Diagnoses Date of procedure: 10/20/23 Time of procedure: 08:00 Procedure Notes Physician: Andrew Lees Total Fluoroscopy time (seconds): 9 Total sedation minutes: 0 Procedure in detail & Post-procedure care: Left Ischial Bursa Injection Indications: Susanna is presenting for treatment of ischial bursitis with buttock pain. Preoperative diagnosis: Left ischial bursitis Postoperative diagnosis: Same Focused Examination: Ax3 Mood and affect are normal Vital Signs: VSS Consent: Following review of allergies and potential side effects/complications, including, but not necessarily limited to, infection, allergic reaction, local tissue breakdown, stroke, temporary or permanent nerve injury, paralysis, and possible , the patient indicated that they understood and agreed to proceed.? An informed consent document was signed by the patient, witnessed by a nurse and placed in the patient's chart.? Additionally, other treatment options including medications and physical therapy were reviewed with the patient. All questions were answered. Site was then marked. Anesthesia: Local Position: Prone Monitoring: NIBP, Pulse oximetry, 3 lead EKG Needle used: 22 gauge, 5 inch spinal needle Contrast: Isovue 300-M 3mL Injectate: Depo-Medrol 40 mg with 0.5% bupivacaine 2 mL Technique: The skin was prepped with chloraprep and then draped in a sterile fashion. Time out was performed as per protocol. Oxygen applied via NC. The expected location of the left ischial bursa was identified at the inferior aspect of the ischium using fluoroscopy. Skin and subcutaneous structures of the needle entry sites were then infiltrated with 5 mL of lidocaine 1% using a 25 gauge, 1.5 in needle. Under AP and lateral control, the needle was guided to the inferolateral aspect of the ischium. Contrast was injected and the spread was consistent with appropriate needle location. There was no evidence for intravascular uptake. After negative aspiration, the above-mentioned injectate was slowly administered and the needle withdrawn. The patient expressed no unu sual discomfort or paresthesias during needle positioning or injection. Band- Aids applied to injection sites. EBL: less than 1 ml Complications: None Post Procedure: Patient was taken to the recovery and monitored. The patient was provided a Pain Log to continue to record the patient's response to the target- specific procedure prior to the patient's follow-up visit with the referring physician. Patient was stable upon discharge. Detailed post procedure instructions were provided. Patient was asked to call in the event of worsening pain, fever, weakness, numbness or bladder/bowel incontinence.
== END 2023-10-20 08:30 | disposition home or self-care (01) ==
LOC: RAD 07:40
PROVIDERS: PCP Family Medicine; Referring Provider Anesthesiology; Visit Provider Anesthesiology
DX: M70.72 Other bursitis of hip, left hip (principal)
CPT/HCPCS: 20610; 77002; J2919

== ENCOUNTER → 2024-07-05 07:01 | Outpatient (CLI) | payer MEDICARE, SELFPAY ==
[2024-07-05 08:32] LABS: Alanine Aminotransferase 19 IU/L (<35); Albumin Globulin Ratio 1.5 (1.0-2.8); Alkaline Phosphatase 66 U/L (38-126); Aspartate Aminotransferase 29 IU/L (14-36); BUN Creatinine Ratio 22.4 (6-22); Bilirubin Total 0.5 mg/dL (0.2-1.3); Blood Urea Nitrogen 19 mg/dL (7-17); Calcium 9.6 mg/dL (8.4-10.2); Carbon Dioxide 32 mmol/L (22-32); Chloride 104 mmol/L (98-107); Cholesterol 222 mg/dL (140-199); Estimated Glomerular Filt Rate > 60 mL/min (>60); Globulin 2.6 g/dL (1.7-4.1); Glucose 99 mg/dL (80-110); HDL Cholesterol 86 mg/dL (40-60); HEMOLYSIS < 15 (0-50); LDL Cholesterol Calculated 115 mg/dL (<100); Potassium 4.2 mmol/L (3.4-5.1); Sodium 139 mmol/L (137-145); Total Protein 6.6 g/dL (6.3-8.2); Triglycerides 106 mg/dL (35-150)
[2024-07-05 08:35] LABS: Creatinine Urine Random 106.79 mg/dL
[2024-07-05 08:40] LABS: Microalbumin Urine Random < 0.6 mg/dL (0-1.6)
== END ==
PROVIDERS: PCP Family Medicine; Referring Provider Family Medicine; Visit Provider Family Medicine
DX: Z00.00 Encounter for general adult medical examination without abnormal findings (principal); I10 Essential (primary) hypertension; E78.5 Hyperlipidemia, unspecified; F32.5 Major depressive disorder, single episode, in full remission
CPT/HCPCS: 36415; 80053; 80061; 82043; 82570

== ENCOUNTER → 2025-08-24 06:57 | Outpatient (CLI) | payer MEDICARE, SELFPAY ==
[2025-08-24 08:04] LABS: Alanine Aminotransferase 20 IU/L (<35); Albumin 4.1 g/dL (3.5-5.0); Albumin Globulin Ratio 1.5 (1.0-2.8); Alkaline Phosphatase 69 U/L (38-126); Blood Urea Nitrogen 16 mg/dL (7-17); Calcium 9.7 mg/dL (8.4-10.2); Carbon Dioxide 31 mmol/L (22-32); Chloride 104 mmol/L (98-107); Cholesterol 231 mg/dL (140-199); Estimated Glomerular Filt Rate > 60 mL/min (>60); Globulin 2.7 g/dL (1.7-4.1); Glucose 109 mg/dL (70-99); HDL Cholesterol 103 mg/dL (40-60); HEMOLYSIS < 15 (0-50); Potassium 4.6 mmol/L (3.4-5.1); Sodium 140 mmol/L (137-145); Total Protein 6.8 g/dL (6.3-8.2); Triglycerides 88 mg/dL (35-150)
[2025-08-24 10:17] LABS: Microalbumi Creatinin Ratio Ur 6.0 ug/mg CR (<30)
== END ==
PROVIDERS: PCP Family Medicine; Referring Provider Family Medicine; Visit Provider Family Medicine
DX: I10 Essential (primary) hypertension (principal)
CPT/HCPCS: 36415; 80053; 80061; 82043; 82570